=== PATIENT | male | born 1985 | race Hispanic/Latino ===

== ENCOUNTER 2018-08-12 11:24 | Day surgery (SDC) | payer OTHER ==
[~2018-08-12 11:24] MED LIST: DIPRIVAN 10 MG/ML IV ONE; NACL 0.9% 1000 ML 1,000 ML IV SCH
--- NOTE | 2018-08-12 15:43 | Anesthesia Day of Surgery ---
Anesthesia Day of Surgery - Day of Surgery Patient Examined: Yes Patient H&P Reviewed: Yes Patient is NPO: Yes Beta Blockers: No Cardiac Clearance: No Pulmonary Clearance: No Hector's Test: N/A
--- NOTE | 2018-08-12 15:44 | Anesthesia Consultation ---
Anesthesia Consult and Med Hx - Airway Anesthetic Teeth Evaluation: Good ROM Head & Neck: Adequate Mental/Hyoid Distance: Adequate Mallampati Class: Class II Intubation Access Assessment: Probably Good - Pulmonary Exam CTA: Yes - Cardiac Exam Cardiac Exam: RRR - Pre-Operative Health Status ASA Pre-Surgery Classification: ASA3 Proposed Anesthetic Plan: General, TIVA - Pulmonary Hx Smoking: Yes - Other Systems Hx Alcohol Use: Yes Hx Substance Use: Yes
--- NOTE | 2018-08-12 15:45 | Post Anesthesia Evaluation ---
- Post Anesthesia Evaluation Patient Participated: Yes Airway Patent: Yes Stable Respiratory Function: Yes Nausea/Vomiting: No Temp > 96.8F: Yes Pain Manageable: Yes Adequeate Hydration: Yes Anesthesia Complications: No Block Receding Appropriately: Not Applicable Patient on Ventilator: No
[2018-08-12 16:01] VITALS: BP 122/69
--- NOTE | 2018-08-12 16:22 | Operative Report ---
Operative Report Operative Report: Date: 08/12/2018 Operative Report: Date of procedure: 08/12/2018 Procedure: Esophagogastroduodenoscopy with multiple mucosal biopsies Attending physician: Huy Bruce MD [place] Person: Huy Bruce MD Indication: Patient is a 32 year-old male who presented with a history of early satiety and intestinal gas. He also has a history of dark: Stools and blood in stool. An upper endoscopy is done to assess patient and check for healing of the ulcers so that treatment may be directed based on the findings. Consent: Informed consent was obtained after advising the patient and family regarding nature of this procedure, its indications, potential benefits as well as possible complications including but not limited to bleeding perforation and adverse reaction to medication, infection as well as other cardiopulmonary complications. An informed written and verbal consent was then obtained after due opportunity was provided for questions and answers. Monitoring: Patient was monitored continuously with pulse oximetry and electrocardiographic recordings as well as blood pressure recordings. Vital signs remained stable throughout this procedure with no untoward events. Preoperative assessment: Patient was assessed immediately prior to this procedure for capacity to tolerate monitored anesthesia care and moderate sedation as well as general anesthesia. Patient's ASA classification is 2, Mallampati class is 2, Hyomental distance is 3. Instrument: [employer] video endoscope Medications: Propofol given intravenously in divided doses. For details please refer to anesthesia records. Description of procedure: Patient was placed in the left lateral decubitus position after achieving sedation, the endoscope was introduced into the esophagus under direct vision. It was then advanced beyond the esophagus into the stomach and then beyond the stomach into the duodenum and to the second po rtion of the duodenum. It was subsequently withdrawn with careful inspection of all mucosal surfaces with the following findings. Findings: Esophagus was relatively normal however patient had an irregular Z line at 39 cm. There was a 1-2 cm sliding hiatal hernia seen on entry into the stomach There was erythema in the gastric antrum. Biopsies of the antrum were obtained for histopathology. In the duodenum patient had some erosions in the bulb and the rest of the examination to the second portion was normal . Impression: Irregular Z line. Hiatal hernia. Stomach antral erythema. Duodenal bulb erosions. Plan: Follow pathology report. Direct additional treatment based on the pathology report.
--- NOTE | 2018-08-12 16:22 | Discharge Summary ---
Short Stay Discharge Plan Activity: advance as tolerated Weight Bearing Status: Weight Bear as Tolerated Diet: regular Additional Instructions: Avoid Aspirin NSAIDS D/C Instructions Avoid the following for the time period specified by your physician: -Asprin(Juan Miguel, Bufferin, Excedrin, Goody's or BC Powders) -Ibuprofen (Advil or Motrin) -Naproxen (Aleve or Naprosyn) -Indomethacin, Sulindac, Etodolac, Diclofenac -Meloxicam, Piroxicam, Tenoxicam, Droxicam, Lornoxicam, Isoxicam -Mefenamic acid, Meclofenamic acid, Flufenamic acid, Tolfenamic acid -Celecoxib (Celebrex) Post Sedation D/C Instructions When you return home you may resume your regular diet unless otherwise directed. -Go directly home from the hospital and rest quietly. You may resume normal activities tomorrow. -Do NOT drive, return to work, operate any machinery or make any important personal or business decisions today. -Do NOT drink any alcohol or take nerve or sleeping drugs. They add to the effects of the medicine still present in your body. Follow up with: PRIMARY CAREMD [Primary Care Provider] - 7 Days Forms: Discharge Signature Page
== END 2018-08-12 16:01 | disposition home or self-care (01) ==
LOC: GIO 11:24
PROVIDERS: ATTEND Internal Medicine Gastroenterology
DX: K29.50 Unspecified chronic gastritis without bleeding (principal); K26.9 Duodenal ulcer, unspecified as acute or chronic, without hemorrhage or perforation; K44.9 Diaphragmatic hernia without obstruction or gangrene; R68.81 Early satiety; F17.210 Nicotine dependence, cigarettes, uncomplicated; F10.10 Alcohol abuse, uncomplicated; F32.9 Major depressive disorder, single episode, unspecified; F41.9 Anxiety disorder, unspecified; Z72.89 Other problems related to lifestyle; Z98.890 Other specified postprocedural states; Z79.899 Other long term (current) drug therapy
CPT/HCPCS: 43239; 88305; 88342; J2704; J7030